=== PATIENT | female | born 1995 | race Caucasian/White ===

== ENCOUNTER 2018-12-31 06:09 | Emergency (ER) | payer MEDICAID ==
[~2018-12-31] VITALS: Ht 162.6 cm; Wt 75.7 kg
[2018-12-31 06:11] VITALS: Ht 162.6 cm; Wt 75.7 kg
[2018-12-31 07:07] VITALS: BP 139/75
== END 2018-12-31 07:07 | disposition home or self-care (01) ==
LOC: ED 06:09
DX: H00.019 Hordeolum externum unspecified eye, unspecified eyelid (principal); H10.89 Other conjunctivitis; F17.210 Nicotine dependence, cigarettes, uncomplicated
CPT/HCPCS: 99406

== ENCOUNTER 2018-12-31 23:01 | Emergency (ER) | payer MEDICAID ==
[~2018-12-31] VITALS: Ht 165.1 cm; Wt 76.2 kg
[2018-12-31 23:20] VITALS: BP 126/81; Ht 165.1 cm; Wt 76.2 kg
== END 2019-01-01 02:42 | disposition left against medical advice (07) ==
LOC: ED 23:01
DX: Z53.21 Procedure and treatment not carried out due to patient leaving prior to being seen by health care provider (principal)

== ENCOUNTER 2019-12-02 21:04 | Emergency (ER) | payer MEDICAID ==
[~2019-12-02] VITALS: Ht 165.1 cm; Wt 78.9 kg
[2019-12-02 21:22] VITALS: Ht 165.1 cm; Wt 78.9 kg
[2019-12-02 21:57] VITALS: BP 167/97
== END 2019-12-02 21:57 | disposition home or self-care (01) ==
LOC: ED 21:04
DX: L03.114 Cellulitis of left upper limb (principal); F15.10 Other stimulant abuse, uncomplicated; F17.210 Nicotine dependence, cigarettes, uncomplicated

== ENCOUNTER 2020-05-31 21:31 | Emergency (ER) | payer MEDICAID ==
[~2020-05-31] VITALS: Ht 167.6 cm; Wt 57.6 kg
[2020-05-31 21:45] VITALS: Ht 167.6 cm; Wt 57.6 kg
[2020-05-31 23:36] VITALS: BP 120/74
== END 2020-05-31 23:37 | disposition home or self-care (01) ==
LOC: ED 21:31
DX: L02.413 Cutaneous abscess of right upper limb (principal)